=== PATIENT | female | born 1995 | race Two or more races ===

== ENCOUNTER 2022-08-26 10:57 | Emergency (ER) | payer OTHER ==
[~2022-08-26] VITALS: Ht 177.8 cm; Wt 65.8 kg
[2022-08-26] MEDS ORDERED: PEPCID AC20 MG PO (17:17)
[2022-08-26] MEDS ORDERED: ONDANSETRON ODT4 MG PO (17:17)
== END 2022-08-26 17:33 ==
LOC: ER 10:57
DX: O26.891 Other specified pregnancy related conditions, first trimester (principal); E86.0 Dehydration; O21.0 Mild hyperemesis gravidarum